=== PATIENT | female | born 1960 | race Caucasian/White ===

== ENCOUNTER 2024-08-28 16:16 | Emergency (ER) | payer MEDICARE, OTHER, SELFPAY ==
[2024-08-28 16:24] VITALS: BP 137/78; PULSE 62; RESP 18; TEMP 36.2; O2SAT 99; BMI 21.1
--- NOTE | 2024-08-28 16:47 | ED.GENADULT ---
HPI - General Adult General Chief complaint: Chest Pain Stated complaint: having some chest pain Time Seen by Provider: 08/28/24 16:18 Source: patient Mode of arrival: ambulatory Limitations: no limitations History of Present Illness HPI narrative: 64-year-old female coming in today concerned about chest pain located on the left side of the chest. Patient states she has been dealing with chest pain for about 10 months now. She states she has had several episodes of cardiac testing include echocardiograms. She is uncertain if she has had a stress test or not. She states that they did put a dye into her arm and tested her heart at some point in time. She did go to the [place] ED 3 weeks ago with similar symptoms where she states a full workup was done and was negative. Patient is concerned because her of a bacterial endocarditis and she ?does not want to be the next victim and ?. Patient does have a history of depression she is on Lexapro. She states that she has a history of bifascicular block and she is on diltiazem for that. This pain comes and goes is not different than the pain she has been feeling for the last 10 months. She felt those little bit stronger today so she came in for evaluation. She denies feeling dizzy or lightheaded. No nausea or vomiting. She is not short of breath. She is not coughing. She denies any recent surgeries. She denies any history of blood clots. She denies any family history of blood clots. She denies any fevers. She states that she works out regularly and does not have pain when she is working out. Related Data Allergies Allergy/AdvReac Type Severity Reaction Status Date / Time No Known Drug Allergies Allergy Verified 08/28/24 16:24 Review of Systems Status of ROS: Reports: 10 or more systems reviewed and unremarkable except as noted in History and below Exam Narrative: Exam Narrative: Well-nourished well-developed patient in no acute distress. Alert and oriented. Answers questions appropriately. Mood and affect are appropriate. Thoughts are goal oriented and rational. No tangential or magical thinking noted. Patient speaks in full sentences without needing to catch her breath. HEENT: Normocephalic atraumatic. Pupils are equally round reactive to light. Extraocular muscles are intact. Conjunctivae are moist without any icterus noted. Moist mucous membranes. Posterior pharynx is normal. Neck is soft without any lymphadenopathy or thyromegaly. No masses are appreciated. Cardiovascular: Heart is regular rate and rhythm S1 and S2 are present without any murmurs. Lungs: Clear to auscultation bilaterally no wheezes rhonchi or rales are appreciated. Patient takes deep breaths without any discomfort. We cannot reproduce her pain with palpation. Abdomen: Soft and nontender nondistended with normal bowel sounds. Extremities: Bilateral lower extremities are without edema. Normal DP and PT pulses. Skin: Well perfused without any obvious rashes. Const: Vital Signs, click to edit/add: Vital Signs - 24 hr 08/28/24 16:24 Temperature 97.2 F L Pulse Rate [Femora l] 62 Respiratory Rate 18 Blood Pressure [Le ft Upper Arm] 137/78 Pulse Oximetry 99 Oxygen Delivery Me thod Room Air Course Course ED Course: EKG, read by me, shows sinus bradycardia with a pulse of 57, bifascicular block. POC troponin is normal. Vital Signs Vital signs: Initial Vital Signs Temperature 97.2 F L 08/28/24 16:24 Temperature Source Temporal Artery Scan 08/28/24 16:24 Pulse Rate 62 08/28/24 16:24 Pulse Rhythm Regular 08/28/24 16:24 Respiratory Rate 18 08/28/24 16:24 Blood Pressure 137/78 08/28/24 16:24 Blood Pressure Mean 97 08/28/24 16:24 Blood Pressure Position Supine 08/28/24 16:24 Pulse Oximetry 99 08/28/24 16:24 Oxygen Delivery Method Room Air 08/28/24 16:24 Vital Signs Temperature 97.2 F L 08/28/24 16:24 Pulse Rate 62 08/28/24 16:24 Respiratory Rate 18 08/28/24 16:24 Blood Pressure 137/78 08/28/24 16:24 Pulse Oximetry 99 08/28/24 16:24 Oxygen Delivery Method Room Air 08/28/24 16:24 Temperature 97.2 F L 08/28/24 16:24 Pulse Rate 62 08/28/24 16:24 Respiratory Rate 18 08/28/24 16:24 Blood Pressure 137/78 08/28/24 16:24 Pulse Oximetry 99 08/28/24 16:24 Oxygen Delivery Method Room Air 08/28/24 16:24 Medical Decision Making MDM Narrative Medical decision making narrative: 64-year-old female with chest pain going on for 10 months. With the duration of her symptoms, her previous multiple workups, the fact that she is not having chest pain when she works out, and no new concerning symptoms associated with today's chest pain I do not think that any further workup is necessary. I even discussed doing further workup with the patient and she stated that all these things that we talked about including further lab work and imaging were done 3 weeks ago when she felt they were not necessary either. Recommend she follow up with her primary care provider to make sure that she has indeed got a stress test which it sounds like she has. Recommend returning to the ER for concerning symptoms including chest pain associated with shortness of breath, diaphoresis. Patient felt reassured and had no other questions. ECG Data Attestation: I personally reviewed and interpreted this ECG as follows: Discharge Plan Discharge Clinical Impression: Atypical chest pain Patient Disposition: Home, Self-Care Condition: Stable Additional Instructions: Follow-up with your primary care provider as needed. Discuss having a stress test done if this has not already been done. Return to the emergency department if you develop chest pain associated with shortness of breath, sweating or dizziness. Follow Up/Referrals: Yaquelin Yanez DO [Primary Care Provider] - Stand Alone Forms: [employer] Info Instructions
--- OUTSIDE RECORDS SUMMARY | 2024-08-28 17:00 | XMS_ITS | Clinical Summary ---
Author Organization [facility] [facility] Address [place], [place] [address] Care Team Providers Care Four Slide Operator Name Role Phone Yaquelin Yanez DO Primary Care Provider Allergies Active Allergy Reactions Criticality Noted Date Comments Sulfa (Sulfonamide Antibiotics) GI Upset Medium 04/30 nausea Medications Medication Sig Dispensed Refills Start Date End Date Status [id number]- Ca carb-vit K 400 mcg-500 mg calcium-20 mcg tab Take 1 tablet by mouth once daily. 0 10/02/2017 Active cholecalciferol (VITAMIN D) 1,000 unit capsule Take 1 capsule by mouth once daily. 0 05/11/2020 Active cyanocobalamin (Vitamin B-12) 1,000 mcg tabletIndication s:Low vitamin B12 level Take 1 Tablet (1,000 mcg) by mouth once daily. 90 Tablet 3 07/01/2023 Active dilTIAZem CD (CARDIZEM CD) 120 mg extended release 24 hr capsuleIndicatio ns:SVT (supraventricula r tachycardia) (HC),PVC's (premature ventricular contractions) Take 1 Capsule (120 mg) by mouth once daily. 90 Capsule 3 03/16/2024 Active escitalopram oxalate (LEXAPRO) 10 mg tabletIndication s:Depression, recurrent (HC) Take 2 Tablets (20 mg) by mouth once daily in the morning. 08/17/2024 Active metoprolol tartrate (LOPRESSOR) 25 mg tabletIndication s:Paroxysmal SVT (supraventricula r tachycardia) (HC) Take 0.5 Tablets (12.5 mg) by mouth one time if needed (svt). 5 Tablet 12/19/2023 4 Discontinued(*Med complete/Regimen complete/Level of care change) escitalopram oxalate (LEXAPRO) 10 mg tabletIndication s:Depression, recurrent (HC) Take 1 Tablet (10 mg) by mouth every morning. 90 Tablet 1 02/05/2024 4 Discontinued escitalopram oxalate (LEXAPRO) 10 mg tabletIndication s:Depression, recurrent (HC) TAKE 1 TABLET (10 MG) BY MOUTH EVERY MORNING. 90 Tablet 1 08/12/2024 4 Discontinued(*Med ication adjustment) Active Problems Problem Noted Date Diagnosed Date Paroxysmal SVT (supraventricular tachycardia) Urethral caruncle 06/18/2018 Depression, recurrent 10/03/2017 Encounters Date Type Department Care Team Description 08/28/2024 Nurse Triage [facility] [address] [place] [address] Yaquelin Yanez DO Chest Pain 08/17/2024 1:50 PM BANK ACCOUNTANT Office Visit [facility] [address] [place] [address] Yaquelin Yanez DO ER Follow up (chest pain/); Immunization/Injecti on (COVID-19 vaccine); Immunization/Injecti on 08/17/2024 Travel 08/13/2024 Travel 08/12/2024 Telephone [facility] [address] [place] [address] Yaquelin Yanez DO Medication Problem 08/08/2024 Refill [facility] [address] [place] [address] Yaquelin Yanez DO Refill Request (Escitalopram Oxalate) 08/03/2024 3:29 PM BANK ACCOUNTANT - 08/03/2024 6:55 PM BANK ACCOUNTANT Emergency [facility] [address] [place] [address] Ted Chin MD Chest pain, unspecified type (Primary Dx) Discharge Disposition: Home Self Care 08/03/2024 Travel 08/03/2024 Nurse Triage [facility] [address] [place] [address] Detert, Yaquelin De Jesusa Chest Pain 07/17/2024 10:20 AM CDT Ancillary Procedure [facility] [address] [place] [address] 07/17/2024 Travel from Last 3 Months Immunizations Name Administration Dates Next Due COVID-19 VACCINE SPIKEVAX (M ODERNA 50MCG/0.5ML) 12YO+ PFS 08/17/2024 COVID-19 vaccine (Moderna Gab fabien 50mcg/0.25mL) PF, MDV 09/04/2021 COVID-19 vaccine (Pfizer-Bio NTech 30mcg/0.3mL) 12YO+ RACHEAL-SUCROSE PF, MDV 04/17/2022 COVID-19 vaccine (Pfizer-Bio NTech 30mcg/0.3mL) PF, MDV 01/23/2021,01/02/2021 Inactivated Polio Vaccine 05/07/2023 Influenza RIV4 (Age 18+ Year s) PRESERV FREE 06/30/2022 Influenza, IIV4 07/01/2023,,07/26/2020,2017,06/30/2017 Influenza, IIV4 (=>6mos) MDV 07/23/2019 Influenza, Inactivated IIV3 (Age 65+ Years) Preserv Free 08/17/2024 Tdap 06/18/2018 Typhoid (injectable) 05/07/2023 Zoster (Shingrix-RZV, recombinant) 07/26/2020, Family History Medical History Relation Name Comments Cancer-prostate Father Osteoporosis Mother Premature CHD (under age 60) Neg. negative Cancer-breast Paternal Uncle age of 70 Relation Name Status Comments Father Mother Alive Neg. Alive Paternal Uncle Social History Tobacco Use Types Packs/Day Years Used Date Smoking Tobacco: Never Smokeless Tobacco: Never Tobacco Cessation:Counseling Given: Yes Alcohol Use Standard Drinks/Week Comments Not Currently 0 (1 standard drink = 0.6 oz pur e alcohol) occ PHQ-2 Answer Date Recorded PHQ-2 TOTAL SCORE 2 02/05/2024 Social Connections Answer Date Recorded Frequency of Communication with Friends and Fami ly 0 06/14/2023 Financial Resource Strain Answer Date R ecorded Difficulty of Paying Living Expenses 3 06/14/2023 Difficulty of Paying Living Expenses Not on file 06/14/2023 Food Insecurity Answer Date Recorded Worried About Running Out of Food in the Last Ye ar 1 06/14/2023 Transportation Needs Answer Date Record ed Lack of Transportation (Medical) 1 06/14/2023 Housing Stability Answer Date Recorded Unable to Pay for Housing in the Last Year 1 06/14/2023 Sex and Gender Information Value Date Recorded Sex Assigned at Not on file Gender Identity Not on file Sexual Orientation Not on file Obstetrics History Last Filed Vital Signs Vital Sign Reading Time Taken Comments Blood Pressure 113/73 08/17/2024 1:55 PM BANK ACCOUNTANT Pulse 62 08/17/2024 1:55 PM BANK ACCOUNTANT Temperature 36.6 C (97.9 F) 08/03/2024 3:38 PM BANK ACCOUNTANT Respiratory Rate 16 08/03/2024 3:38 PM BANK ACCOUNTANT Oxygen Saturation 99% 08/17/2024 1:55 PM BANK ACCOUNTANT Inhaled Oxygen Concentration - - Weight 74.1 kg (163 lb 6.4 oz) 08/17/2024 1:55 P M BANK ACCOUNTANT Height 182.9 cm (6') 08/03/2024 3:38 PM BANK ACCOUNTANT Body Mass Index 22.16 08/03/2024 3:38 PM BANK ACCOUNTANT Plan of Treatment Upcoming Encounters Date Type Department Care Team (Late st Contact Info) Description 10/02/2024 1:00 PM BANK ACCOUNTANT Office Visit [facility] [address] [place] [address] Yaquelin Yanez DO [address] [place] [address] Health Maintenance Due Date Last Done Comments DEXA/DXA scan for age 65+ 2024 Medicare Wellness for age 65+ 2024 Pneumococcal series for age 65+ (1 of 1 - PCV) 2024 Fecal testing non-DNA (FIT,FOBT,iFOBT) for age 45-75 05/05/2024 05/05/2023, 06/18/2021, 05/17/2020 BMI (ht and wt on same day) for age 18+ 01/30/2025 01/31/2024, 08/12/2023, 05/07/2023, Additional history exists Depression screening for age 12+ 02/06/2025 02/07/2024, 02/05/2024, 07/02/2022, Additional history exists Mammogram for age 45-75 07/17/2025 07/17/20 24, 04/22/2023, 03/08/2022, Additional history exists Tetanus booster 06/18/2028 06/18/2018 Lipids for age 45-75 08/12/2028 08/12/2023, 05/11/20 20 Pap test for age 21-65 08/12/2028 3, 08/12/2023, 06/18/2018, Additional history exists HIV for age 15-65 Completed 01/07/2007 (Co mpleted outside of [facility]) Tdap Completed 06/18/2018 Hepatitis C screening for ag e 18-79 Completed 05/11/2020 Zoster (shingles) series for age 50+ Completed 07/26/2020, 05/11/2020 COVID-19 vaccine series Completed 08/17/20 24, 07/02/2023, 06/30/2022, Additional history exists Influenza for age 65+ Completed 08/17/2024 , 07/01/2023, 06/30/2022, Additional history exists Procedures Procedure Name Priority Date/Time Associated Diagnosis Comments TROPONIN T (HS) ONE TIME Timed 08/03/2024 6:06 PM BANK ACCOUNTANT XR CHEST 2 VIEWS PA AND LATERAL STAT 08/03/2024 4:27 PM BANK ACCOUNTANT TSH STAT 08/03/2024 4:19 PM BANK ACCOUNTANT TROPONIN T (HS) ACUTE W/2HR REFLEX STAT 08/03/2024 4:19 PM BANK ACCOUNTANT BASIC METABOLIC PANEL STAT 08/03/2024 4:19 PM BANK ACCOUNTANT CBC W PLT NO DIFF STAT 08/03/2024 4:1 9 PM BANK ACCOUNTANT EKG 12 LEAD STAT 08/03/2024 3:38 PM BANK ACCOUNTANT XR MAMMO HERRERA BILAT SCREEN Routine 07/17/2024 10:31 AM CDT Visit for screening mammogram LIPID PANEL W REFLEX MEASURED LDL Routine 08/12/2023 1:56 PM BANK ACCOUNTANT Lipid screening HPV HIGH RISK Routine 08/12/2023 1:30 PM BANK ACCOUNTANT Screening for cervical cancer OCCULT BLOOD IFOBT STOOL Routine 05/05/2023 3:00 PM CDT Screening for colorectal cancer ANTI HCV Routine 05/11/2020 10:13 AM CDT Encounter for hepatitis C screening test for low risk patient from Last 3 Months or Most Recently Relevant to Health Maintenance Results * TROPONIN T (HS) ONE TIME (08/03/2024 6:06 PM BANK ACCOUNTANT) TROPONIN T HS 8 6-10 ng/L ng/L 08/03/2024 6:29 PM BANK ACCOUNTANT [facility] Blood BLOOD SPECIMEN / Unknown Venipuncture / Unknown 08/03/2024 6:06 PM BANK ACCOUNTANT 08/03/2024 6:10 PM BANK ACCOUNTANT Ted Chin MD CHEMISTRY [facility] [address] [id number] * XR CHEST 2 VIEWS PA AND LATERAL (08/03/2024 4:27 PM BANK ACCOUNTANT) Anatomical Region Laterality Modality CHEST, THORAX, Lung, HEART Digit al Radiography 08/03/2024 5:04 PM BANK ACCOUNTANT Impressions 08/03/2024 5:04 PM BANK ACCOUNTANT No acute thoracic findings. Dictated by Dallin Koehler MD @ 08/03/2024 5:04:07 PM (Electronically Signed) Narrative 08/03/2024 5:04 PM BANK ACCOUNTANT For Patients: As a result of the Century Cures Act, medical imaging exams and procedure reports are released immediately into your electronic medical record. You may view this report before your referring provider. If you have questions, please contact your health care provider. INDICATION: Chest pain COMPARISON: 02/17/2024 CT cardiac TECHNIQUE: Two radiographic view(s) of the chest. FINDINGS: Mildly hyperexpanded lungs. No substantial pleural effusion. No definite focal pulmonary consolidation. No pneumothorax. Normal heart size. There are osseous degenerative changes. Procedure Note Dallin Koehler MD - 08/03/2024 For Patients: As a result of the Cures Act, medical imagingexams and procedure reports are released immediately into your electronicmedical record. You may view this report before your referring provider.If you have questions, please contact your health care provider. INDICATION: Chest pain COMPARISON: 02/17/2024 CT cardiac TECHNIQUE: Two radiographic view(s) of the chest. FINDINGS: Mildly hyperexpanded lungs. No substantial pleural effusion. No definitefocal pulmonary consolidation. No pneumothorax. Normal heart size. Thereare osseous degenerative changes. IMPRESSION: No acute thoracic findings. Dictated by Dallin Koehler MD @ 08/03/2024 5:04:07 PM (Electronically Signed) Ted Chin MD GENERAL IMAGING * (ABNORMAL) TROPONIN T (HS) ACUTE W/2HR REFLEX (08/03/2024 4:19 PM BANK ACCOUNTANT) TROPONIN T HS 11(H) 6-10 ng/L ng/L 08/03/2024 4:51 PM [facility] Blood BLOOD SPECIMEN / Unknown Venipuncture / Unknown 08/03/2024 4:19 PM BANK ACCOUNTANT 08/03/2024 4:23 PM BANK ACCOUNTANT Narrative [facility] - 08/03/2024 4:51 PM BANK ACCOUNTANT hs-cTnT (Elecsys Troponin T Gen 5) concentration (s) above the sex-specific 99th percentile (16 ng/L or greater for males or 11 ng/L or greater for females) are indicative of myocardial injury. If initial hs-cTnT <=100 ng/L at presentation, a 0h/2h ABSOLUTE (ng/L) delta change (rising or falling) of >=10 ng/L suggests a significant change, whereas a 0h/2h delta change <=3 ng/L suggests no significant change. If initial hs-cTnT >100 ng/L at presentation, a 0h/2h/ RELATIVE (percent, %) delta change of 20% is suggested to distinguish patients with acute vs. chronic myocardial injury. There are multiple etiologies that can cause hs-cTnT increases above the 99th percentile (myocardial injury) other than acute myocardial infarction. Clinical context and careful clinical evaluation are critical for diagnosis and risk-stratification. The diagnosis of acute myocardial infarction requires a rising and/or falling pattern in hs-cTnT concentrations with at least one value above the sex-specific 99th percentile PLUS at least one of the following clinical criteria: ischemic symptoms, new or presumed new significant ST-T wave changes or new LBBB, development of pathological Q waves, imaging evidence of new loss of viable myocardium or new regional wall motion abnormality, or identification of intracoronary atherothrombosis or an acute angiographic culprit on coronary angiography. In appropriate low-risk patients with a non-ischemic electrocardiogram without active chest pain with a symptom onset >3-hours without recurrence, a single initial hs-cTnT<6 ng/L identifies patient with a very low risk in emergency department patient population. Ted Chin MD CHEMISTRY Performing Organization Address City/State/[facility] Co de Phone Number [facility] [address] [place] [id number] * TSH (08/03/2024 4:19 PM BANK ACCOUNTANT) TSH 1.62 0.27 - 4.20 uIU/mL 08/03/2024 4:51 PM BANK ACCOUNTANT [facility] Blood BLOOD SPECIMEN / Unknown Venipuncture / Unknown 08/03/2024 4:19 PM BANK ACCOUNTANT 08/03/2024 4:23 PM BANK ACCOUNTANT [facility] - 08/03/2024 4:51 PM BANK ACCOUNTANT In Adults, TSH values between 5.00 and 10.00 uIU/ml do not necessarily indicate the presence of Hypothyroidism. Correlation with clinical findings such as presence of goiter and/or Thyroperoxidase (TPO) Antibody may be helpful. For more information please refer to GLORIA 2004; 291: 228-238. Ted Chin MD CHEMISTRY Performing Organization Address City/[facility]/ZIP Co de Phone Number [facility] [address] [place] [address] * CBC W PLT NO DIFF (08/03/2024 4:19 PM BANK ACCOUNTANT) WHITE BLOOD COUNT 6.1 4.5 - 11.0 thou/cu mm 08/03/2024 4:34 PM [facility] RED BLOOD COUNT 4.30 4.00 - 5.20 mil/cu mm 08/03/2024 4:34 PM [facility] HEMOGLOBIN 13.2 12.0 - 16.0 g/dL 08/03/2024 4:34 PM [facility] HEMATOCRIT 40.8 33.0 - 51.0 % 08/03/2024 4:34 PM [facility] MCV 95 80 - 100 fL 08/03/2024 4:34 PM [facility] MCH 30.7 26.0 - 34.0 pg 08/03/2024 4:34 PM [facility] MCHC 32.4 32.0 - 36.0 g/dL 08/03/2024 4:34 PM [facility] RDW 13.3 11.5 - 15.5 % 08/03/2024 4:34 PM [facility] PLATELET COUNT 261 140 - 440 thou/cu mm 08/03/2024 4:34 PM [facility] MPV 10.4 6.5 - 11.0 fL 08/03/2024 4:34 PM [facility] Blood BLOOD SPECIMEN / Unknown Venipuncture / Unknown 08/03/2024 4:19 PM BANK ACCOUNTANT 08/03/2024 4:23 PM BANK ACCOUNTANT Ted Chin MD HEMATOLOGY Performing Organization Address [facility]/ZIP Co de Phone Number [facility] [address] [place] [address] * (ABNORMAL) BASIC METABOLIC PANEL (08/03/2024 4:19 PM BANK ACCOUNTANT) SODIUM 142 136 - 145 mmol/L 08/03/2024 4:51 PM [facility] POTASSIUM 4.0 3.5 - 5.1 mmol/L 08/03/2024 4:51 PM [facility] CHLORIDE 106 98 - 107 mmol/L 08/03/2024 4:51 PM [facility] CO2,TOTAL 27 22 - 29 mmol/L 08/03/2024 4:51 PM [facility] ANION GAP 9 5 - 18 08/03/2024 4:51 PM [facility] GLUCOSE 105(H) 70 - 99 mg/dL 08/03/2024 4:51 PM [facility] CALCIUM 9.4 8.8 - 10.2 mg/dL 08/03/2024 4:51 PM [facility] BUN 16 8 - 23 mg/dL 08/03/2024 4:51 PM [facility] CREATININE 0.87 0.50 - 0.90 mg/dL 08/03/2024 4:51 PM [facility] BUN/CREAT RATIO 18 10 - 20 4:51 PM [facility] eGFR 74(L) >90 mL/min/1.7 3m2 08/03/2024 4:51 PM [facility] Comment:As of 2021, eG FR is calculated by the CKD-EPI creatinine equation without race adjustment. eGFR can be influenced by muscle mass, exercise, and diet. The reported eGFR is an estimation only and is only applicable if the renal function is stable. Blood BLOOD SPECIMEN / Unknown Venipuncture / Unknown 08/03/2024 4:19 PM BANK ACCOUNTANT 08/03/2024 4:23 PM BANK ACCOUNTANT Ted Chin MD CHEMISTRY [facility] [address] [place] [address] * EKG 12 LEAD (08/03/2024 3:38 PM BANK ACCOUNTANT) Interpretation Sinus bradycardia Right bundle branch block Left anterior fascicular block Bifascicular block Abnormal ECG When compared with ECG of 31-Jan-2024 10:58, Criteria for Septal infarct are no longer Present T wave inversion now evident in Inferior leads BEYOND NOW Ventricular Rate 59 BPM BEYOND NOW Atrial Rate 59 BPM BEYOND NOW P-R Interval 178 ms BEYOND NOW QRS Duration 132 ms BEYOND NOW QT 460 ms BEYOND NOW QTc 455 ms BEYOND NOW P Innis 26 degrees BEYOND NOW R Innis -66 degrees BEYOND NOW T Innis 3 degrees BEYOND NOW 08/03/2024 3:38 PM BANK ACCOUNTANT 08/03/2024 4:25 PM BANK ACCOUNTANT Ted Chin MD EKG ORD BEYOND NOW [place], [place] * XR MAMMO HERRERA BILAT SCREEN (07/17/2024 10:31 AM CDT) Anatomical Region Laterality Modality BREASTS, Breast Left, Breast Right Bilateral Mammography Impressions 07/20/2024 2:19 PM CDT There is no radiographic evidence for malignancy. Recommend annual mammograms. MAMMOGRAM ASSESSMENT: ACR 1 Negative PATIENTS: You will also receive a letter with your examination results in an easy to read format. If you have questions about your results, please contact your referring provider. Narrative 07/20/2024 2:19 PM CDT For Patients: As a result of the Century Cures Act, medical imaging exams and procedure reports are released immediately into your electronic medical record. You may view this report before your referring provider. If you have questions, please contact your health care provider. XR MAMMO HERRERA BILAT SCREEN [[id number]] CLINICAL HISTORY: This is an asymptomatic 64 y.o. patient. INDICATION FOR EXAM: Mammogram Screening. TECHNIQUE: CC & MLO views were obtained. This study was evaluated with the assistance of Computer-Aided Detection. Breast Tomosynthesis was used in interpretation. COMPARISON FILM: Yes 04/22/23 [facility] 03/08/22 [facility] FINDINGS: The breasts are heterogeneously dense, which may obscure small masses. There are no dominant masses, suspicious micro calcifications or areas of architectural distortion. Yaquelin Yanez DO MAMMO * (ABNORMAL) LIPID PANEL W REFLEX MEASURED LDL (08/12/2023 1:56 PM BANK ACCOUNTANT) CHOLESTEROL,TOTAL 245(H) 100 - 199 mg/dL 08/12/2023 11:03 PM BANK ACCOUNTANT [facility] Comment: Cholesterol, Total Reference Ranges Desirable <200 mg/dL Borderline 200-239 mg/dL High >=240 mg/dL TRIGLYCERIDES 103 <150 mg/dL 08/12/2023 11:03 PM BANK ACCOUNTANT [facility] HDL CHOLESTEROL 112 >40 mg/dL 11:03 PM BANK ACCOUNTANT [facility] NON-HDL CHOLESTEROL 133 <145 mg/dl 08/12/2023 11:03 PM BANK ACCOUNTANT [facility] CHOL/HDL RATIO 2.19 <4.50 08/12/2023 11:03 PM BANK ACCOUNTANT [facility] LDL CHOLESTEROL 112 <=130 mg/dL 08/12/2023 11:03 PM BANK ACCOUNTANT [facility] VLDL CHOLESTEROL 21 <=30 mg/dL 08/12/2023 11:03 PM BANK ACCOUNTANT [facility] PROVIDER ORDERED STATUS RANDOM 08/12/2023 11:03 PM BANK ACCOUNTANT [facility] Blood BLOOD SPECIMEN / Unknown Venipuncture / Unknown 08/12/2023 1:56 PM BANK ACCOUNTANT 08/12/2023 1:57 PM BANK ACCOUNTANT Yaquelin Yanez DO CHEMISTRY [facility] [address] [place] [address], * HPV HIGH RISK (08/12/2023 1:30 PM BANK ACCOUNTANT) TYPE 16 Negative Negative 08/15/2023 4:32 PM BANK ACCOUNTANT [facility] TYPE 18 Negative Negative 08/15/2023 4:32 PM BANK ACCOUNTANT [facility] OTHER HIGH RISK TYPES Negative Negative 08/15/2023 4:32 PM BANK ACCOUNTANT [facility] Other (Cervical) Non-Blood / Unknown 08/12/2023 1:30 PM BANK ACCOUNTANT 08/13/2023 10:33 AM BANK ACCOUNTANT Narrative [facility] - 08/15/2023 4:32 PM BANK ACCOUNTANT HPV types 16, 18, 31, 33, 35, 39, 45, 51, 52, 56, 58, 59, 66 and 68 DNA were undetectable or below the pre-set threshold. Methodology: Won Oc 4800 HPV Test Yaquelin Yanez DO MICROBIOLOGY [facility] [address] [place] [address], * OCCULT BLOOD IFOBT STOOL (05/05/2023 3:00 PM CDT) STOOL BLOOD ,IFOBT Negative Negative 05/13/2023 9:15 AM CDT [facility] Stool STOOL SPECIMEN / Unknown Non-Blood / Unknown 05/05/2023 3:00 PM CDT 05/10/2023 3:00 PM CDT Yaquelin Yanez DO LABORATORY Performing Organization Address [facility] Co de Phone Number [facility] [address] [place] [address], * ANTI HCV [[id number]] (05/11/2020 10:13 AM CDT) HEPATITIS C ANTIBODY Non-React may Non-React may 05/11/2020 5:55 PM CDT [facility] Comment:Antibodies to HCV no t detected; does not exclude the possibility of exposure to HCV. Blood BLOOD SPECIMEN / Unknown Venipuncture / Unknown 05/11/2020 10:13 AM CDT 05/11/2020 10:13 AM CDT Yaquelin Yanez DO SEND OUTS [facility] [address] [place] [address], from Last 3 Months or Most Recently Relevant to Health Maintenance Care Teams Four Slide Operator Relationship Specialty Start Date End Date Yaquelin Yanez DO [address] [place] [address] PCP - General Family Practice 04/18/18
[2024-08-28 17:28] LABS: Troponin, Point-of-Care* < 0.01 ng/ml (0.01-0.04)
== END 2024-08-28 17:15 | disposition home or self-care (01) ==
LOC: ED 16:58
PROVIDERS: Emergency Provider Family Medicine; PCP Family Medicine
DX: R07.9 Chest pain, unspecified (principal)
CPT/HCPCS: 84484; 93005; 99284

== ENCOUNTER 2024-08-31 15:23 | Outpatient (RCR) | payer MEDICARE, OTHER, SELFPAY | END 2024-12-29 23:59 | disposition home or self-care (01) | PROVIDERS: PCP Family Medicine; Visit Provider Family Medicine | DX: R07.81 Pleurodynia (principal); G25.89 Other specified extrapyramidal and movement disorders; R07.9 Chest pain, unspecified; M54.6 Pain in thoracic spine; R29.3 Abnormal posture; R53.1 Weakness; Z51.89 Encounter for other specified aftercare | CPT/HCPCS: 97110; 97162 ==